=== PATIENT | female | born 1950 | race Two or more races ===

== ENCOUNTER 2019-10-03 22:52 | Inpatient (IN) | payer OTHER ==
[~2019-10-03] VITALS: Ht 172.7 cm; Wt 67.7 kg
[2019-10-03] MEDS ORDERED: ACETAMINOPHEN 500 MG TABLET ONE (23:43)
[2019-10-04] MEDS ORDERED: CEFTRIAXONE PMX 1GM/50ML 50 ML ONE (00:12)
[2019-10-04] MEDS ORDERED: ASPIRIN 81 MG TABLET CHEW ONE (00:55)
[2019-10-04 01:45] VITALS: BP 98/69
[2019-10-04] MEDS: SODIUM CHLORIDE 0.9% 1,000 ML IV SCH ×3 (03:15→18:22)
[2019-10-04] MEDS: LEVOFLOXACIN/PMX 750MG/150ML 150 ML IV SCH (03:55)
[2019-10-04] MEDS: PLEASE ENTER ALLERGIES MC SCH ×4 (05:00→07:51)
[2019-10-04 06:03] LABS: MEAN CORPUSCULAR HEMOGLOBIN 33.1 pg (27.0-34.8); MEAN CORPUSCULAR HGB CONC 33.1 g/dL (32.4-35.8); MEAN CORPUSCULAR VOLUME 99.9 fL (80-100); RED BLOOD COUNT 3.17 x10^6/uL (3.82-5.3); RED CELL DISTRIBUTION WIDTH 14.5 % (9.6-15.2)
[2019-10-04 06:13] LABS: ANION GAP 8 mmol/L (5-15); CALCIUM 7.4 mg/dL (8.5-10.1); CHLORIDE 111 mmol/L (98-107); CREATININE 1.46 mg/dL (0.55-1.02)
[2019-10-04 06:40] LABS: MD YES; MEAN PLATELET VOLUME 9.1 fL (7.4-10.4); PLATELET COUNT 76 x10^3/uL (130-400)
[2019-10-04 06:42] LABS: BAND#(MANUAL) 1.15 x10^3/uL; BANDS%(MANUAL) 18 % (0-7); SEG#(MANUAL) 4.42 x10^3/uL (1.8-6.8); SEGS% (MANUAL) 69 % (42-75)
[2019-10-04 06:43] LABS: MONOS#(MANUAL) 0.06 x10^3/uL (0.3-2.7); MONOS% (MANUAL) 1 % (2-9)
[2019-10-04 06:44] LABS: <PLATELET ESTIMATE> DECREASED; <PLT MORPHOLOGY> NORMAL PLT MORPH; <RBC MORPHOLOGY> NORMAL; LYMPHS% (MANUAL) 11 % (22-44); REACTIVE LYMPHS # (MANUAL) 0.06 x10^3/uL (0-0); REACTIVE LYMPHS % (MANUAL) 1 % (0-0)
[2019-10-04 08:27] VITALS: BP 94/57
[2019-10-04] MEDS ORDERED: POTASSIUM CHLORIDE 20 MEQ TAB.ER.PRT PO ONE (09:00)
[2019-10-04 12:43] LABS: MICROSCOPIC INDICATED
[2019-10-04 13:05] VITALS: BP 101/66
[2019-10-04 14:26] LABS: ALANINE AMINOTRANSFERASE 38 U/L (12-78); ALBUMIN 3.3 g/dL (3.4-5.0); ALKALINE PHOSPHATASE 67 U/L (45-117); ANION GAP 8 mmol/L (5-15); BILIRUBIN,TOTAL 0.8 mg/dL (0.2-1.0); CALCIUM 8.3 mg/dL (8.5-10.1); CHLORIDE 107 mmol/L (98-107); CREATININE 1.73 mg/dL (0.55-1.02); TOTAL PROTEIN 8.9 g/dL (6.4-8.2)
[2019-10-04] MEDS ORDERED: PLEASE ENTER PATIENTS HEIGHT MC ONE (14:30)
[2019-10-04 14:40] LABS: RAPID INFLUENZA A Negative (Negative); RAPID INFLUENZA B Negative (Negative)
[2019-10-04 14:48] LABS: MEAN CORPUSCULAR HEMOGLOBIN 32.7 pg (27.0-34.8); MEAN CORPUSCULAR HGB CONC 33.5 g/dL (32.4-35.8); MEAN CORPUSCULAR VOLUME 97.6 fL (80-100); RED BLOOD COUNT 3.67 x10^6/uL (3.82-5.3); RED CELL DISTRIBUTION WIDTH 14.4 % (9.6-15.2)
[2019-10-04 14:49] LABS: MD YES; MEAN PLATELET VOLUME 8.7 fL (7.4-10.4); PLATELET COUNT 87 x10^3/uL (130-400)
[2019-10-04 14:50] LABS: BAND#(MANUAL) 1.39 x10^3/uL; BANDS%(MANUAL) 33 % (0-7); LYMPH#(MANUAL) 0.25 x10^3/uL (1-3.4); LYMPHS% (MANUAL) 6 % (22-44); MONOS#(MANUAL) 0.04 x10^3/uL (0.3-2.7); MONOS% (MANUAL) 1 % (2-9); SEG#(MANUAL) 2.52 x10^3/uL (1.8-6.8); SEGS% (MANUAL) 60 % (42-75)
[2019-10-04 14:51] LABS: <PLATELET ESTIMATE> DECREASED; <PLT MORPHOLOGY> NORMAL PLT MORPH; <RBC MORPHOLOGY> NORMAL
[2019-10-04 16:53] LABS: TROPONIN I 0.996 ng/mL (0.000-0.045)
[2019-10-04 20:10] VITALS: BP 123/72
[2019-10-04 23:30] LABS: TROPONIN I 0.668 ng/mL (0.000-0.045)
[2019-10-05 00:56] VITALS: BP 122/75
[2019-10-05] MEDS: SODIUM CHLORIDE 0.9% 1,000 ML IV SCH ×3 (01:32→20:49)
[2019-10-05] MEDS: LEVOFLOXACIN/PMX 750MG/150ML 150 ML IV SCH (04:57)
[2019-10-05 05:09] LABS: ALBUMIN 2.4 g/dL (3.4-5.0); ANION GAP 5 mmol/L (5-15); CALCIUM 7.9 mg/dL (8.5-10.1); CHLORIDE 116 mmol/L (98-107)
[2019-10-05 05:14] LABS: ALANINE AMINOTRANSFERASE 31 U/L (12-78); ALKALINE PHOSPHATASE 45 U/L (45-117); BILIRUBIN,TOTAL 0.5 mg/dL (0.2-1.0); CREATININE 1.06 mg/dL (0.55-1.02); TOTAL PROTEIN 7.1 g/dL (6.4-8.2)
[2019-10-05 05:56] LABS: MD YES; MEAN CORPUSCULAR HEMOGLOBIN 33.3 pg (27.0-34.8); MEAN CORPUSCULAR HGB CONC 33.3 g/dL (32.4-35.8); MEAN PLATELET VOLUME 9.1 fL (7.4-10.4); PLATELET COUNT 87 x10^3/uL (130-400); RED BLOOD COUNT 3.18 x10^6/uL (3.82-5.3); RED CELL DISTRIBUTION WIDTH 14.8 % (9.6-15.2)
[2019-10-05 06:00] LABS: <RBC MORPHOLOGY> NORMAL; BAND#(MANUAL) 0.25 x10^3/uL; BANDS%(MANUAL) 5 % (0-7); EOS% (MANUAL) 2 % (1-7); LYMPHS% (MANUAL) 18 % (22-44); MONOS% (MANUAL) 4 % (2-9); SEG#(MANUAL) 3.55 x10^3/uL (1.8-6.8); SEGS% (MANUAL) 71 % (42-75)
[2019-10-05 06:01] LABS: <PLATELET ESTIMATE> DECREASED; <PLT MORPHOLOGY> NORMAL PLT MORPH
[2019-10-05 06:54] VITALS: BP 148/81
[2019-10-05] MEDS ORDERED: MAGNESIUM SULFATE PMX 2GM/50ML 50 ML IV ONE (10:00)
[2019-10-05] MEDS: NEUTRA PHOS K 250 MG TABLET PO SCH ×3 (10:51→20:49)
[2019-10-05 12:02] VITALS: BP 135/80
[2019-10-05 19:14] VITALS: BP 161/76
[2019-10-06 01:06] VITALS: BP 149/76
[2019-10-06] MEDS: SODIUM CHLORIDE 0.9% 1,000 ML IV SCH (02:20)
[2019-10-06] MEDS: LEVOFLOXACIN/PMX 750MG/150ML 150 ML IV SCH (04:44)
[2019-10-06 05:09] LABS: ANION GAP 5 mmol/L (5-15); CALCIUM 7.5 mg/dL (8.5-10.1); CHLORIDE 115 mmol/L (98-107); CREATININE 0.94 mg/dL (0.55-1.02)
[2019-10-06 05:10] LABS: MEAN CORPUSCULAR HEMOGLOBIN 32.4 pg (27.0-34.8); MEAN CORPUSCULAR HGB CONC 33.1 g/dL (32.4-35.8); MEAN CORPUSCULAR VOLUME 97.8 fL (80-100); RED BLOOD COUNT 3.17 x10^6/uL (3.82-5.3); RED CELL DISTRIBUTION WIDTH 14.3 % (9.6-15.2)
[2019-10-06 05:14] LABS: MEAN PLATELET VOLUME 8.5 fL (7.4-10.4); PLATELET COUNT 86 x10^3/uL (130-400)
[2019-10-06 05:46] LABS: MD YES
[2019-10-06 05:49] LABS: <RBC MORPHOLOGY> NORMAL; BAND#(MANUAL) 0.07 x10^3/uL; BANDS%(MANUAL) 2 % (0-7); EOS#(MANUAL) 0.07 x10^3/uL (0.0-0.4); EOS% (MANUAL) 2 % (1-7); LYMPH#(MANUAL) 0.92 x10^3/uL (1-3.4); LYMPHS% (MANUAL) 27 % (22-44); MONOS#(MANUAL) 0.14 x10^3/uL (0.3-2.7); MONOS% (MANUAL) 4 % (2-9); REACTIVE LYMPHS # (MANUAL) 0.03 x10^3/uL (0-0); REACTIVE LYMPHS % (MANUAL) 1 % (0-0); SEG#(MANUAL) 2.18 x10^3/uL (1.8-6.8); SEGS% (MANUAL) 64 % (42-75)
[2019-10-06 05:50] LABS: <PLATELET ESTIMATE> DECREASED; <PLT MORPHOLOGY> NORMAL PLT MORPH
[2019-10-06 06:55] VITALS: BP 151/82
[2019-10-06] MEDS ORDERED: POTASSIUM CHLORIDE 20 MEQ TAB.ER.PRT PO ONE (08:00)
[2019-10-06] MEDS: NEUTRA PHOS K 250 MG TABLET PO SCH ×3 (09:38→21:40)
[2019-10-06] MEDS: LISINOPRIL 5 MG TABLET PO SCH (09:38)
[2019-10-06 13:41] VITALS: BP 155/85
[2019-10-06 20:46] VITALS: BP 127/69
[2019-10-06] MEDS ORDERED: OMNIPAQUE 350 MG/ML, 100ML BOTTLE ONE (23:51)
[2019-10-07 01:28] VITALS: BP 150/83
[2019-10-07] MEDS: LEVOFLOXACIN/PMX 750MG/150ML 150 ML IV SCH (05:20)
[2019-10-07 05:47] LABS: CHLORIDE 109 mmol/L (98-107)
[2019-10-07 05:51] LABS: ANION GAP 6 mmol/L (5-15); CALCIUM 8.3 mg/dL (8.5-10.1); CREATININE 1.11 mg/dL (0.55-1.02)
[2019-10-07 06:13] LABS: BASOPHILS # (AUTO) 0.02 x10^3/uL (0-0.1); BASOPHILS % (AUTO) 1 % (0-1); EOSINOPHILS # (AUTO) 0.13 x10^3/uL (0-0.4); EOSINOPHILS % (AUTO) 4 % (1-7); LYMPHOCYTES # (AUTO) 1.13 x10^3/uL (1-3.4); LYMPHOCYTES % (AUTO) 32 % (22-44); MD NO; MEAN CORPUSCULAR HEMOGLOBIN 32.9 pg (27.0-34.8); MEAN CORPUSCULAR HGB CONC 33.6 g/dL (32.4-35.8); MEAN PLATELET VOLUME 8.5 fL (7.4-10.4); MONOCYTES # (AUTO) 0.51 x10^3/uL (0.2-0.8); MONOCYTES % (AUTO) 14 % (2-9); NEUTROPHILS # (AUTO) 1.76 x10^3/uL (1.8-6.8); NEUTROPHILS % (AUTO) 50 % (42-75); PLATELET COUNT 107 x10^3/uL (130-400); RED BLOOD COUNT 3.33 x10^6/uL (3.82-5.3); RED CELL DISTRIBUTION WIDTH 14.2 % (9.6-15.2)
[2019-10-07 06:38] VITALS: BP 136/82
[2019-10-07] MEDS: LISINOPRIL 5 MG TABLET PO SCH (09:26)
[2019-10-07] MEDS: NEUTRA PHOS K 250 MG TABLET PO SCH ×3 (09:26→21:03)
[2019-10-07 12:49] VITALS: BP 138/84
[2019-10-07] MEDS: ISOSORBIDE MONONITRATE ER 30 MG TABLET PO SCH (12:55)
[2019-10-07 20:23] VITALS: BP 106/65
[2019-10-08 00:04] VITALS: BP 127/76
[2019-10-08 00:06] VITALS: BP 127/76
[2019-10-08] MEDS: ASPIRIN 81 MG TABLET EC PO SCH (05:16)
[2019-10-08] MEDS: LEVOFLOXACIN/PMX 750MG/150ML 150 ML IV SCH (05:17)
[2019-10-08 06:13] LABS: CHLORIDE 107 mmol/L (98-107)
[2019-10-08 06:25] LABS: ANION GAP 9 mmol/L (5-15); CALCIUM 8.5 mg/dL (8.5-10.1); CREATININE 1.14 mg/dL (0.55-1.02)
[2019-10-08 06:29] LABS: BASOPHILS # (AUTO) 0.02 x10^3/uL (0-0.1); BASOPHILS % (AUTO) 0 % (0-1); EOSINOPHILS # (AUTO) 0.16 x10^3/uL (0-0.4); EOSINOPHILS % (AUTO) 4 % (1-7); LYMPHOCYTES # (AUTO) 1.29 x10^3/uL (1-3.4); LYMPHOCYTES % (AUTO) 30 % (22-44); MD NO; MEAN CORPUSCULAR HEMOGLOBIN 33.3 pg (27.0-34.8); MEAN CORPUSCULAR HGB CONC 33.7 g/dL (32.4-35.8); MEAN CORPUSCULAR VOLUME 98.8 fL (80-100); MEAN PLATELET VOLUME 8.4 fL (7.4-10.4); MONOCYTES # (AUTO) 0.61 x10^3/uL (0.2-0.8); MONOCYTES % (AUTO) 14 % (2-9); NEUTROPHILS # (AUTO) 2.29 x10^3/uL (1.8-6.8); NEUTROPHILS % (AUTO) 53 % (42-75); PLATELET COUNT 121 x10^3/uL (130-400); RED CELL DISTRIBUTION WIDTH 14.5 % (9.6-15.2)
[2019-10-08 06:39] VITALS: BP 126/76
[2019-10-08] MEDS: NEUTRA PHOS K 250 MG TABLET PO SCH ×3 (08:17→22:25)
[2019-10-08] MEDS: ISOSORBIDE MONONITRATE ER 30 MG TABLET PO SCH (08:17)
[2019-10-08] MEDS: LISINOPRIL 5 MG TABLET PO SCH (08:17)
[2019-10-08] MEDS ORDERED: POTASSIUM CHLORIDE 20 MEQ TAB.ER.PRT PO SCH (09:00)
[2019-10-08 12:06] VITALS: BP 115/69
[2019-10-08] MEDS ORDERED: OMNIPAQUE 350 MG/ML, 100ML BOTTLE ONE (16:18)
[2019-10-08] MEDS ORDERED: POTASSIUM CHLORIDE 20 MEQ TAB.ER.PRT PO ONE (18:00)
[2019-10-08 18:59] VITALS: BP 104/69
[2019-10-09] MEDS ORDERED: POTASSIUM CHLORIDE 20 MEQ TAB.ER.PRT PO ONE (02:00)
[2019-10-09 02:51] VITALS: BP 122/76
[2019-10-09] MEDS: LEVOFLOXACIN/PMX 750MG/150ML 150 ML IV SCH (05:13)
[2019-10-09] MEDS: ASPIRIN 81 MG TABLET EC PO SCH (05:13)
[2019-10-09 06:18] LABS: BASOPHILS # (AUTO) 0.02 x10^3/uL (0-0.1); BASOPHILS % (AUTO) 1 % (0-1); EOSINOPHILS # (AUTO) 0.15 x10^3/uL (0-0.4); EOSINOPHILS % (AUTO) 3 % (1-7); LYMPHOCYTES # (AUTO) 1.38 x10^3/uL (1-3.4); LYMPHOCYTES % (AUTO) 30 % (22-44); MD NO; MEAN CORPUSCULAR HGB CONC 32.9 g/dL (32.4-35.8); MEAN CORPUSCULAR VOLUME 100.4 fL (80-100); MEAN PLATELET VOLUME 8.5 fL (7.4-10.4); MONOCYTES # (AUTO) 0.58 x10^3/uL (0.2-0.8); MONOCYTES % (AUTO) 13 % (2-9); NEUTROPHILS # (AUTO) 2.46 x10^3/uL (1.8-6.8); NEUTROPHILS % (AUTO) 54 % (42-75); PLATELET COUNT 150 x10^3/uL (130-400); RED BLOOD COUNT 3.38 x10^6/uL (3.82-5.3); RED CELL DISTRIBUTION WIDTH 14.3 % (9.6-15.2)
[2019-10-09 06:20] LABS: CHLORIDE 108 mmol/L (98-107)
[2019-10-09 06:25] LABS: ALANINE AMINOTRANSFERASE 28 U/L (12-78); ALBUMIN 2.9 g/dL (3.4-5.0); ALKALINE PHOSPHATASE 46 U/L (45-117); ANION GAP 6 mmol/L (5-15); BILIRUBIN,TOTAL 0.7 mg/dL (0.2-1.0); CALCIUM 8.7 mg/dL (8.5-10.1); CREATININE 1.22 mg/dL (0.55-1.02); TOTAL PROTEIN 7.4 g/dL (6.4-8.2)
[2019-10-09] MEDS ORDERED: POTASSIUM CHLORIDE 20 MEQ TAB.ER.PRT PO SCH (08:00)
[2019-10-09 08:07] VITALS: BP 113/73
[2019-10-09] MEDS: ISOSORBIDE MONONITRATE ER 30 MG TABLET PO SCH (10:14)
[2019-10-09] MEDS: NEUTRA PHOS K 250 MG TABLET PO SCH (10:14)
[2019-10-09] MEDS: LISINOPRIL 5 MG TABLET PO SCH (10:15)
[2019-10-09] MEDS ORDERED: PHOS250T3 PO (14:14)
[2019-10-09] MEDS ORDERED: CEFD300C37 PO (14:14)
[2019-10-09] MEDS ORDERED: ISOS30TA8 PO (14:14)
[2019-10-09] MEDS ORDERED: POTA20TA6 PO (14:14)
[2019-10-09] MEDS ORDERED: ASPI81TA45 PO (14:14)
[2019-10-09] MEDS ORDERED: LISI5TAB7 PO (14:14)
[2019-10-09 14:40] VITALS: BP 119/73
[2019-10-09] MEDS ORDERED: FLU VACC QS2019-20 36MOS UP/PF 0.5 ML IM-VACC ONE (15:30)
[2019-10-09] MEDS ORDERED: FLU VAC QS 19-20(4YR UP)CEL/PF 0.5 ML IM-VACC ONE (15:30)
== END 2019-10-09 17:25 | disposition home or self-care (01) | DRG 871 ==
LOC: ED 10-04 02:53 → EDIP 10-04 02:54 → 5SO 10-04 03:04 → 3N 10-08 00:41 → DCLOUNGE 10-09 16:58
PROVIDERS: ADMIT Internal Medicine; ATTEND Internal Medicine
DX: A41.51 Sepsis due to Escherichia coli [E. coli] (principal); I21.4 Non-ST elevation (NSTEMI) myocardial infarction; J15.9 Unspecified bacterial pneumonia; R65.21 Severe sepsis with septic shock; N12 Tubulo-interstitial nephritis, not specified as acute or chronic; N17.9 Acute kidney failure, unspecified; D64.9 Anemia, unspecified; D69.6 Thrombocytopenia, unspecified; E66.9 Obesity, unspecified; Z68.22 Body mass index [BMI] 22.0-22.9, adult; E83.39 Other disorders of phosphorus metabolism; E83.42 Hypomagnesemia; E87.6 Hypokalemia; I10 Essential (primary) hypertension; Z87.442 Personal history of urinary calculi
CPT/HCPCS: 0399T; 36415; 71045; 71275; 74177; 76770; 80048; 80053; 80061; 81001; 83605; 83735; 83880; 84100; 84145; 84484; 85025; 85379; 87040; 87077; 87086; 87186; 87400; 90686; 93005; 93306; 99291; G0378; J1956; Q9967; J3475; J7030